=== PATIENT | male | born 1950 | race Two or more races ===

== ENCOUNTER 2020-04-17 08:00 | Inpatient (IN) | payer OTHER ==
[2020-04-17] MEDS ORDERED: NIFEDIPINE20 MG PO (08:55)
[2020-04-17] MEDS ORDERED: LASIX40 MG PO (08:56)
[2020-04-17] MEDS ORDERED: METFORMIN HCL500 M3 PO (08:56)
[2020-04-17] MEDS ORDERED: ASPIR 8181 MG PO (08:56)
[2020-04-17] MEDS ORDERED: ISOSORBIDE DINI30 MG PO (08:56)
[2020-04-21] MEDS ORDERED: METOPROLOL TART50 MG PO (14:40)
[2020-04-21] MEDS ORDERED: ATORVASTATIN CA20 MG (14:41)
[2020-04-21] MEDS ORDERED: 8 HOUR650 MG (14:41)
[2020-04-21] MEDS ORDERED: ISOSORBIDE MONO30 M2 (14:41)
[2020-04-23] MEDS ORDERED: XARELTO10 MG PO (08:15)
[2020-04-23] MEDS ORDERED: INTEGRA PLUS C1 EACH PO (08:15)
[2020-04-23] MEDS ORDERED: TRAMADOL HCL50 MG PO (08:15)
== END 2020-04-23 14:50 | DRG 470 ==
LOC: SURH 04-21 08:00 → O/R 04-21 09:25 → SURG 04-21 09:25 → SURH 04-21 12:45 → SURG 04-21 18:43
PROVIDERS: ADMIT Orthopaedic Surgery Sports Medicine; ATTEND Orthopaedic Surgery Sports Medicine
PROC: 0SRD0J9 Replacement of Left Knee Joint with Synthetic Substitute, Cemented, Open Approach (ICD-10-PCS; principal; 2020-04-21 12:45)
DX: M17.12 Unilateral primary osteoarthritis, left knee (principal); I10 Essential (primary) hypertension; E11.9 Type 2 diabetes mellitus without complications; I25.10 Atherosclerotic heart disease of native coronary artery without angina pectoris; Z95.5 Presence of coronary angioplasty implant and graft